=== PATIENT | female | born 1980 | race Caucasian/White ===

== ENCOUNTER 2020-10-13 10:08 | Day surgery (SDC) | payer BC ==
[2020-10-11 18:04] VITALS: BMI 26.7
[2020-10-13] MEDS ORDERED: MIDAZOLAM HCL 2 MG/2 ML SINGLE DOSE VIAL ONE (10:57)
[2020-10-13] MEDS ORDERED: PROPOFOL 20 ML ONE (11:02)
[2020-10-13] MEDS ORDERED: DEXAMETHASONE SOD PHOSPHATE 4 MG/1 ML VIAL ONE (11:15)
[2020-10-13] MEDS ORDERED: ONDANSETRON 4 MG/2 ML VIAL ONE ×2 (11:15→13:44)
[2020-10-13] MEDS ORDERED: ceFAZolin SODIUM 1 GM VIAL ONE (11:15)
[2020-10-13] MEDS ORDERED: HYDROmorphone HCL/PF 1 MG/ML VIAL ONE (12:01)
[2020-10-13] MEDS ORDERED: BUPIVACAINE HCL/PF 0.25% (2.5MG/ML) 10 ML VIAL IJ ONE ×2 (12:37→12:53)
[2020-10-13] MEDS ORDERED: KETOROLAC TROMETHAMINE 30 MG/1 ML VIAL ONE (12:44)
[2020-10-13] MEDS ORDERED: oxyCODONE HCL 5 MG TABLET PO PRN (13:10)
[2020-10-13] MEDS ORDERED: ACETAMINOPHEN 325 MG TABLET (FP) PO PRN (13:10)
[2020-10-13] MEDS ORDERED: ONDANSETRON 4 MG/2 ML VIAL IVPUSH PRN (13:10)
[2020-10-13] MEDS ORDERED: LACTATED RINGERS SOLUTION 1,000 ML IV SCH (13:15)
[2020-10-13 14:22] VITALS: TEMP 97.8
[2020-10-13] MEDS ORDERED: PROMETHAZINE HCL 25 MG/1 ML VIAL ONE (14:35)
[2020-10-13] MEDS ORDERED: PROMETHAZINE HCL 25 MG/1 ML VIAL IVPUSH ONE (14:40)
[2020-10-13 17:24] VITALS: BP 125/79; PULSE 84
== END 2020-10-13 17:20 | disposition home or self-care (01) ==
LOC: FASU 10:08
PROVIDERS: ATTEND Orthopaedic Surgery Hand Surgery
PROC: 0LQ60ZZ Repair Left Lower Arm and Wrist Tendon, Open Approach (ICD-10-PCS; 2020-10-13)
PROC: 01Q40ZZ Repair Ulnar Nerve, Open Approach (ICD-10-PCS; principal; 2020-10-13 11:26)
DX: S64.02XA Injury of ulnar nerve at wrist and hand level of left arm, initial encounter (principal); S66.128A Laceration of flexor muscle, fascia and tendon of other finger at wrist and hand level, initial encounter; X58.XXXA Exposure to other specified factors, initial encounter; Y93.9 Activity, unspecified; Y92.9 Unspecified place or not applicable
CPT/HCPCS: 84703; 94760